=== PATIENT | male | born 1960 | race Caucasian/White ===

== ENCOUNTER 2016-10-06 11:28 | Emergency (ER) | payer OTHER ==
[~2016-10-06] VITALS: Ht 167.6 cm; Wt 86.0 kg
[2016-10-06 11:34] VITALS: BP 178/108; PULSE 84; RESP 18; TEMP 98.5; O2SAT 95
--- NOTE | 2016-10-06 11:41 | PD ---
HPI Chief Complaint: Cardiac Complaint Time Seen by Provider: 11:40 Travel History International Travel<30 days: No Contact w/Intl Traveler<30days: No Traveled to known affect area: No History of Present Illness HPI 55-year-old male came to the emergency room with history of shortness of breath , nocturnal dyspnea, bilateral leg swelling left worse than the right for past 1 week. Patient says he went to see his primary care who did not want to give anything to the patient and wanted the patient to be seen in the emergency room. Patient says that he is supposed to be on medication for his diabetes and hypertension but has not taken any of those for months. He was tachycardic in the emergency room with his heart rate in 100s. He is not complaining of any chest pain. [facility] Past Medical History Narrative Medical List of his past medical, surgical, social and family history is reviewed from the nursing note. Diabetes: Yes Patient Takes Glucophage: No Hypertension: Yes Past Surgical History Surgical History: No Previous Surgery Social History Alcohol Use: Yes ([facility]) Tobacco Use: No Substance Use: No Allergies-Medications (Allergen,Severity, Reaction): Coded Allergies: No Known Allergies (Unverified , 10/06/16) Comments No known drug allergies. Reported Meds & Prescriptions Reported Meds & Active Scripts Active Metformin (Metformin HCl) 500 Mg Tab 500 Mg PO BIDPC 7 Days With meals Lopressor (Metoprolol Tartrate) 50 Mg Tab 25 Mg PO DAILY Potassium Chloride ER (Potassium Chloride) 10 Meq Cap 10 Meq PO BID Lasix (Furosemide) 20 Mg Tab 20 Mg PO BID 10 Days Narrative Medication List of his home medications reviewed from the nursing note. Review of Systems Except as stated in HPI: all other systems reviewed are Neg Physical Exam Narrative GENERAL: Awake, alert, mild distress SKIN: Focused skin assessment warm/dry. HEAD: Atraumatic. Normocephalic. EYES: Pupils equal and round. No scleral icterus. No injection or drainage. ENT: No nasal bleeding or discharge. Mucous membranes pink and moist. NECK: Trachea midline. No JVD. CARDIOVASCULAR: Regular rate and rhythm. No murmur appreciated. RESPIRATORY: No accessory muscle use. Clear to auscultation. Breath sounds equal bilaterally. GASTROINTESTINAL: Abdomen soft, non-tender, nondistended. Hepatic and splenic margins not palpable. MUSCULOSKELETAL: No obvious deformities. No clubbing. No cyanosis. Bilateral pedal edema, left leg worse than the right. Dry skin and some erythema on the dorsal surface of the left foot and the pretibial area. NEUROLOGICAL: Awake and alert. No obvious cranial nerve deficits. Motor grossly within normal limits. Normal speech. PSYCHIATRIC: Appropriate mood and affect; insight and judgment normal. Data Data Last Documented VS Vital Signs Date Time Temp Pulse Resp B/P Pulse Ox O2 Delivery O2 Flow Rate FiO2 10/06/16 16:10 97.8 76 16 140/86 99 10/06/16 15:28 Room Air Orders Electrocardiogram (10/06/16 ) Basic Metabolic Panel (Bmp) (10/06/16 12:26) B-Type Natriuretic Peptide (10/06/16 12:26) Ckmb (Isoenzyme) Profile (10/06/16 12:26) Complete Blood Count With Diff (10/06/16 12:26) Magnesium (Mg) (10/06/16 12:26) Prothrombin Time / Inr (Pt) (10/06/16 12:26) Act Partial Throm Time (Ptt) (10/06/16 12:26) Troponin I (10/06/16 12:26) Chest, Single Ap (10/06/16 12:26) Ecg Monitoring (10/06/16 12:26) Bilateral Bp Monitoring (10/06/16 12:26) Iv Access Insert/Monitor (10/06/16 12:26) Oximetry (10/06/16 12:26) Oxygen Administration (10/06/16 12:26) Sodium Chloride 0.9% Flush (Ns Flush) (10/06/16 12:30) Us Leg Venous Doppler Bilat (10/06/16 ) Furosemide Inj (Lasix Inj) (10/06/16 15:45) Metformin (Glucophage) (10/06/16 16:00) Labs Laboratory Tests Test 10/06/16 12:30 White Blood Count 10.2 TH/MM3 Red Blood Count 5.09 MIL/MM3 Hemoglobin 14.3 GM/DL Hematocrit 43.2 % Mean Corpuscular Volume 84.8 FL Mean Corpuscular Hemoglobin 28.1 PG Mean Corpuscular Hemoglobin 33.2 % Concent Red Cell Distribution Width 13.3 % Platelet Count 242 TH/MM3 Mean Platelet Volume 9.6 FL Neutrophils (%) (Auto) 82.9 % Lymphocytes (%) (Auto) 11.4 % Monocytes (%) (Auto) 4.8 % Eosinophils (%) (Auto) 0.1 % Basophils (%) (Auto) 0.8 % Neutrophils # (Auto) 8.5 TH/MM3 Lymphocytes # (Auto) 1.2 TH/MM3 Monocytes # (Auto) 0.5 TH/MM3 Eosinophils # (Auto) 0.0 TH/MM3 Basophils # (Auto) 0.1 TH/MM3 CBC Comment DIFF FINAL Differential Comment Prothrombin Time 10.8 SEC Prothromb Time International 1.0 RATIO Ratio Activated Partial 24.9 SEC Thromboplast Time Sodium Level 132 MEQ/L Potassium Level 3.9 MEQ/L Chloride Level 96 MEQ/L Carbon Dioxide Level 23.6 MEQ/L Anion Gap 12 MEQ/L Blood Urea Nitrogen 12 MG/DL Creatinine 0.75 MG/DL Estimat Glomerular Filtration 107 ML/MIN Rate Random Glucose 387 MG/DL Calcium Level 8.6 MG/DL Magnesium Level 2.3 MG/DL Total Creatine Kinase 93 U/L Troponin I 0.03 NG/ML B-Type Natriuretic Peptide 281 PG/ML MDM Medical Decision Making Medical Screen Exam Complete: Yes Emergency Medical Condition: Yes Medical Record Reviewed: Yes Interpretation(s) Twelve-lead EKG was reviewed by me. Normal sinus rhythm, normal axis, questionable old anterior TX, tachycardia, poor R-wave progression, nonspecific ST-T wave changes. Heart rate of 100 bpm. Differential Diagnosis Congestive heart failure, DVT, cellulitis Narrative Course 1:14 PM awaiting for chemistry to come back. CBC is back and within normal limit. Awaiting for the ultrasound to be done and resulted. 3:43 PM ultrasound is within normal limit. Patient will be discharged home. Procedures EKG Prior to Arrival: No Diagnosis Primary Impression: Congestive heart failure Qualified Code: I50.9 - Congestive heart failure, unspecified congestive heart failure chronicity, unspecified congestive heart failure type Additional Impressions: Hypertension Qualified Code: I10 - Essential hypertension Non-compliant patient Hyperglycemia Referrals: Primary Care Physician Additional Instructions: Please return to the ER if the condition worsens or any other new concerns. Otherwise follow-up with your primary care. Take the medications as per the prescription direction. Med/Other Pt SpecificInfo: Prescription(s) given Scripts Metformin 500 Mg Cpn042 Mg PO BIDPC 7 Days Ref 0 With meals Prov:Jose,Shravanti R. MD 10/06/16 Metoprolol Tartrate (Lopressor)50 Mg Tab25 Mg PO DAILY #10 TAB Ref 0 Prov:Barry Garcia MD 10/06/16 Potassium Chloride ER 10 Meq Cap10 Meq PO BID #60 CAP Ref 0 Prov:Barry Garcia MD 10/06/16 Furosemide (Lasix)20 Mg Tab20 Mg PO BID 10 Days Ref 0 Prov:Barry Garcia MD 10/06/16 Disposition: 01 DISCHARGE HOME Condition: Stable Barry Garcia MD October 06, 2016 11:41
[2016-10-06] MEDS ORDERED: SODIUM CHLORIDE 0.9% FLUSH 10 ML FLUSH IVF PRN (12:30)
[2016-10-06 12:45] VITALS: BP_SYST 166; BP_SYST 170; BP_DIAS 100; BP_DIAS 98; PULSE 90; RESP 16; RESP 17; TEMP 97.8; O2SAT 97; O2SAT 98
[2016-10-06 12:57] LABS: AUTOMATED NEUTROPHIL # 8.5 TH/MM3 (1.8-7.7); BASOPHIL # 0.1 TH/MM3 (0-0.2); BASOPHIL % 0.8 % (0.0-2.0); EOSINOPHIL % 0.1 % (0.0-4.0); HEMATOCRIT 43.2 % (39.0-51.0); HEMO FLAGS DIFF FINAL; LYMPH % 11.4 % (9.0-44.0); LYMPHOCYTE # 1.2 TH/MM3 (1.0-4.8); MEAN CELL VOLUME 84.8 FL (80.0-100.0); MEAN CORPUSCULAR HEMOGLOBIN 28.1 PG (27.0-34.0); MEAN CORPUSCULAR HGB CONC 33.2 % (32.0-36.0); MONO % 4.8 % (0.0-8.0); NEUT % 82.9 % (16.0-70.0); PLATELET COUNT 242 TH/MM3 (150-450); RED BLOOD COUNT 5.09 MIL/MM3 (4.50-5.90); RED CELL DISTRIBUTION WIDTH 13.3 % (11.6-17.2); WHITE BLOOD COUNT 10.2 TH/MM3 (4.0-11.0)
[2016-10-06 13:06] LABS: APTT (PATIENT) 24.9 SEC (24.3-30.1); PROTHROMBIN TIME - PATIENT 10.8 SEC (9.8-11.6)
[2016-10-06 13:20] VITALS: BP 143/89; PULSE 89; RESP 17; O2SAT 98
[2016-10-06 13:20] LABS: BICARBONATE 23.6 MEQ/L (21.0-32.0); MAGNESIUM 2.3 MG/DL (1.5-2.5); POTASSIUM 3.9 MEQ/L (3.5-5.1)
--- NOTE | 2016-10-06 13:22 | RADRPT ---
EXAM DATE/TIME: 10/06/2016 12:50 [facility] COMPARISON: No previous studies available for comparison. INDICATIONS : Short of breath, lower extremity edema, cold symptoms for one week, chest pain MEDICAL HISTORY : None. SURGICAL HISTORY : None. ENCOUNTER: Initial ACUITY: 1 week PAIN SCORE: 5/10 LOCATION: Bilateral chest FINDINGS: A single view of the chest demonstrates bibasilar consolidation. Diminished lung volumes. Heart naveen l in size. Osseous structures are intact. CONCLUSION: 1. Diminished lung volumes and bibasilar consolidation likely atelectasis. Bairon Landaverde MD on October 06, 2016 at 13:18 Board Certified Radiologist. This report was verified electronically.
--- NOTE | 2016-10-06 15:18 | RADRPT ---
EXAM DATE/TIME: 10/06/2016 13:57 [facility] COMPARISON: No previous studies available for comparison. INDICATIONS : Bilateral leg pain and swelling. MEDICAL HISTORY : Hypertension. Diabetes. SURGICAL HISTORY : None. ENCOUNTER: Initial ACUITY: 1 day PAIN SCORE: 3/10 LOCATION: Bilateral legs. TECHNIQUE: Venous ultrasound of the left and right leg was performed from the inguinal ligament to the proximal calf. Real-time, color Doppler and spectral tracing, compression and augmentation techniques were us ed. FINDINGS: RIGHT LEG: There is normal compressibility of the deep venous system from the inguinal region to the proximal ca lf. No echogenic clot is seen in the lumen of the common femoral, femoral, popliteal, and posterior tibial veins. There is a normal response of the venous system to proximal and distal augmentation an d respiration. LEFT LEG: There is normal compressibility of the deep venous system from the inguinal region to the proximal ca lf. No echogenic clot is seen in the lumen of the common femoral, femoral, popliteal, and posterior tibial veins. There is a normal response of the venous system to proximal and distal augmentation an d respiration. CONCLUSION: Normal examination. Moy Rdz MD on October 06, 2016 at 15:16 Board Certified Radiologist. This report was verified electronically.
[2016-10-06 15:28] VITALS: BP 151/92; PULSE 89; RESP 17; TEMP 98; O2SAT 98
[2016-10-06] MEDS ORDERED: FUROSEMIDE 40 MG/4 ML VIAL IV PUSH ONE (15:45)
[2016-10-06] MEDS ORDERED: FURO1TAB62 PO (15:46)
[2016-10-06] MEDS ORDERED: POTA10CA PO (15:46)
[2016-10-06] MEDS ORDERED: METO-309 PO (15:46)
[2016-10-06] MEDS ORDERED: METF500T PO (15:55)
[2016-10-06] MEDS ORDERED: metFORMIN HCL 500 MG TAB PO ONE (16:00)
[2016-10-06 16:10] VITALS: BP 140/86; TEMP 97.8
--- NOTE | 2016-10-06 16:31 | EKG ---
Date Performed: 10/06/2016 Time Performed: 11:46:44 PTAGE: 55 years EKG: SINUS TACHYCARDIA NONSPECIFIC ST & T-WAVE ABNORMALITY ABNORMAL ECG NO PREVIOUS TRACING DOCTOR: Darius Fang Interpretating Date/Time 10/06/2016 16:29:40
[2016-10-31] MEDS ORDERED: LISI-515 PO ×2 (10:26→10:53)
[2016-10-31] MEDS ORDERED: METF1000 PO ×2 (10:26→10:53)
[2016-10-31] MEDS ORDERED: GLIP10TA6 PO (10:51)
[2016-10-31] MEDS ORDERED: METO-309 PO (10:53)
[2016-10-31] MEDS ORDERED: GLUCTES27 (10:55)
[2016-11-07] MEDS ORDERED: PRAV20TA2 PO ×2 (10:35→16:15)
[2016-11-07] MEDS ORDERED: GLIP10TA6 PO (10:35)
[2016-11-07] MEDS ORDERED: FURO1TAB62 PO (10:35)
[2016-11-07] MEDS ORDERED: POTA10CA PO (10:35)
[2016-11-07] MEDS ORDERED: LISI40TA PO (10:42)
== END 2016-10-06 16:20 | disposition home or self-care (01) ==
LOC: NEPC 11:28
DX: I50.9 Heart failure, unspecified (principal); I10 Essential (primary) hypertension; E11.65 Type 2 diabetes mellitus with hyperglycemia; R00.0 Tachycardia, unspecified; R94.31 Abnormal electrocardiogram [ECG] [EKG]; Z91.14 Patient's other noncompliance with medication regimen; Z79.84 Long term (current) use of oral hypoglycemic drugs
CPT/HCPCS: 71010; 80048; 82550; 83735; 83880; 84484; 85025; 85610; 85730; 93005; 93970; 96374; 99285; J1940

== ENCOUNTER 2016-10-09 15:36 | Emergency (ER) | payer OTHER ==
[~2016-10-09] VITALS: Ht 167.6 cm; Wt 85.0 kg
[~2016-10-09 15:36] MED LIST: FURO1TAB62 PO; METF500T PO; METO-309 PO; POTA10CA PO
[2016-10-09 15:37] VITALS: BP 186/115; TEMP 97.7; O2SAT 97
[2016-10-09 15:38] VITALS: BP 187/114; PULSE 89; RESP 18; TEMP 98.7; O2SAT 98
--- NOTE | 2016-10-09 18:10 | PD ---
HPI Chief Complaint: Skin Problem Time Seen by Provider: 17:55 Travel History International Travel<30 days: No Contact w/Intl Traveler<30days: No Traveled to known affect area: No History of Present Illness HPI This Is a 55-year-old male who presents for evaluation of bilateral lower extremity rash, weeping of serous fluid. Symptoms started a few days ago. He has been having lower extremity edema for several days. He was seen here on October 06, testing was suggestive of congestive heart failure and he was started on metoprolol, metformin, potassium supplements and Lasix. He presents today because the redness and weeping on his shins is new, worse since then. He denies any pain, itching. Denies fevers. He has no other complaints. [facility] Past Medical History Diabetes: Yes Hypertension: Yes Social History Alcohol Use: Yes ([facility]) Tobacco Use: No Substance Use: No Allergies-Medications (Allergen,Severity, Reaction): Coded Allergies: No Known Allergies (Unverified , 10/09/16) Reported Meds & Prescriptions Reported Meds & Active Scripts Active Metformin (Metformin HCl) 500 Mg Tab 500 Mg PO BIDPC 7 Days With meals Lopressor (Metoprolol Tartrate) 50 Mg Tab 25 Mg PO DAILY Potassium Chloride ER (Potassium Chloride) 10 Meq Cap 10 Meq PO BID Lasix (Furosemide) 20 Mg Tab 20 Mg PO BID 10 Days Review of Systems Except as stated in HPI: all other systems reviewed are Neg Physical Exam Narrative GENERAL: Well-developed well-nourished male in no acute distress SKIN: Warm and dry. There is bilateral lower extremity skin redness overlying the shins. There is some serous drainage from various places. There is no tenderness to palpation. There is no purulent drainage, no induration of the skin. CARDIOVASCULAR: Regular rate and rhythm. No murmur appreciated. RESPIRATORY: No accessory muscle use. Clear to auscultation. Breath sounds equal bilaterally. GASTROINTESTINAL: Abdomen soft, non-tender, nondistended. Hepatic and splenic margins not palpable. MUSCULOSKELETAL: No obvious deformities. Bilateral lower extremity edema, pitting, 2+. Skin as noted above. NEUROLOGICAL: Awake and alert. No obvious cranial nerve deficits. Motor grossly within normal limits. Normal speech. Data Data Last Documented VS Vital Signs Date Time Temp Pulse Resp B/P Pulse Ox O2 Delivery O2 Flow Rate FiO2 10/09/16 15:38 98.7 89 18 187/114 98 [facility] Medical Decision Making Medical Screen Exam Complete: Yes Emergency Medical Condition: Yes Medical Record Reviewed: Yes Differential Diagnosis Venous stasis dermatitis, CHF, bilateral lower extremity cellulitis, erysipelas , dependent edema Narrative Course Physical examination is most consistent with venous stasis dermatitis of the lower extremities. The patient is very concerned about the possibility of cellulitis and therefore wound culture of the serous drainage was performed. He will be started on Keflex. He is planning on following up next week with his primary care physician to discuss the results of his testing here on October 06. He is stable for discharge. Diagnosis Primary Impression: Venous stasis dermatitis of lower extremity Additional Instructions: Elevate the legs. Continue medications as prescribed. Take antibiotics as prescribed. Follow-up with primary care physician next week as scheduled. Return for any acutely new or worsening symptoms. Med/Other Pt SpecificInfo: Prescription(s) given Disposition: 01 DISCHARGE HOME Condition: Stable Cameron Nicholson October 09, 2016 18:10
[2016-10-09] MEDS ORDERED: CEPH-460 PO (18:11)
[2016-10-09] MEDS ORDERED: CEPHALEXIN MONOHYDRATE 500 MG CAP PO ONE (18:15)
[2016-10-09 18:51] VITALS: BP 175/105; PULSE 81; RESP 18; O2SAT 98
[2016-10-31] MEDS ORDERED: METF1000 PO ×2 (10:26→10:53)
[2016-10-31] MEDS ORDERED: LISI-515 PO ×2 (10:26→10:53)
[2016-10-31] MEDS ORDERED: GLIP10TA6 PO (10:51)
[2016-10-31] MEDS ORDERED: METO-309 PO (10:53)
[2016-10-31] MEDS ORDERED: GLUCTES27 (10:55)
[2016-11-07] MEDS ORDERED: GLIP10TA6 PO (10:35)
[2016-11-07] MEDS ORDERED: POTA10CA PO (10:35)
[2016-11-07] MEDS ORDERED: PRAV20TA2 PO ×2 (10:35→16:15)
[2016-11-07] MEDS ORDERED: FURO1TAB62 PO (10:35)
[2016-11-07] MEDS ORDERED: LISI40TA PO (10:42)
== END 2016-10-09 18:53 | disposition home or self-care (01) ==
LOC: NEPD 15:36
DX: I87.8 Other specified disorders of veins (principal); I87.2 Venous insufficiency (chronic) (peripheral); R21 Rash and other nonspecific skin eruption; R60.0 Localized edema; E11.9 Type 2 diabetes mellitus without complications; I10 Essential (primary) hypertension; B95.61 Methicillin susceptible Staphylococcus aureus infection as the cause of diseases classified elsewhere
CPT/HCPCS: 86403; 87070; 87186; 87205; 99284

== ENCOUNTER → 2016-11-06 | Outpatient (CLI) | payer OTHER ==
[~2016-11-06] MED LIST changes: +GLIP10TA6 PO; +GLUCTES27; +LISI-515 PO; +LISI40TA PO; +METF1000 PO; -METF500T PO; +PRAV20TA2 PO
--- NOTE | 2016-11-06 11:05 | EC ---
Study Study Date:11/06/2016 STUDY CONCLUSIONS SUMMARY - Left ventricle: The cavity size was normal. Wall thickness was normal. Systolic function was at the lower limits of normal. The estimated ejection fraction was in the range of 50% to 55%. Wall motion was normal; there were no regional wall motion abnormalities. - Mitral valve: Mild regurgitation. If LV function is below 40, please consider prescribing an ACEI or ARB or document rationale for non-use. PROCEDURE DATA STUDY STATUS: Elective. Procedure: Transthoracic echocardiography. Image quality was good. Scanning was performed from the parasternal, apical, and subcostal acoustic windows. Study completion: The patient tolerated the procedure well. Transthoracic echocardiography. M-mode, complete 2D, complete spectral Doppler, and color Doppler. Patient status: Inpatient. CARDIAC ANATOMY LEFT VENTRICLE: The cavity size was normal. Wall thickness was normal. Systolic function was at the lower limits of normal. The estimated ejection fraction was in the range of 50% to 55%. Wall motion was normal; there were no regional wall motion abnormalities. AORTIC VALVE: Trileaflet; normal thickness leaflets. Doppler: Transvalvular velocity was within the normal range. There was no stenosis. No regurgitation. AORTA: Aortic root: The aortic root was normal in size. MITRAL VALVE: Structurally normal valve. Doppler: Transvalvular velocity was within the normal range. There was no evidence for stenosis. Mild regurgitation. LEFT ATRIUM: The atrium was normal in size. RIGHT VENTRICLE: The cavity size was normal. Wall thickness was normal. PULMONIC VALVE: Doppler: Transvalvular velocity was within the normal range. There was no evidence for stenosis. No regurgitation. TRICUSPID VALVE: Structurally normal valve. Doppler: Transvalvular velocity was within the normal range. No regurgitation. PULMONARY ARTERY: The main pulmonary artery was normal-sized. Systolic pressure was within the normal range. RIGHT ATRIUM: The atrium was normal in size. PERICARDIUM: There was no pericardial effusion. SYSTEMIC VEINS: Inferior vena cava: The vessel was normal in size. Prepared and signed by Alok Johnson [id number]
== END ==
LOC: HECH 09:00
PROVIDERS: ATTEND Family Medicine
DX: I50.9 Heart failure, unspecified (principal)
CPT/HCPCS: 93306